=== PATIENT | male | born 1980 | race African-American/Black ===

== ENCOUNTER 2017-04-02 14:31 | Emergency (ER) | payer SELFPAY ==
[2017-04-02 14:33] VITALS: BP 154/80; PULSE 98; RESP 15; TEMP 98.4; O2SAT 99
[2017-04-02] MEDS ORDERED: REGL10TA5 PO (15:11)
--- NOTE | 2017-04-02 15:12 | PD ---
HPI Chief Complaint: GI Complaint Time Seen by Provider: 14:40 Travel History International Travel<30 days: No Contact w/Intl Traveler<30days: No Traveled to known affect area: No History of Present Illness HPI This is a 36-year-old man who presents to the emergency Department with hiccups. He said trouble with hiccups in the port. Is been ongoing for 3 or 4 days. He is been treated medications for this in the past. Little bit of nausea. No other complaints. History Past Medical History Medical History: Denies Significant Hx Social History Alcohol Use: No Tobacco Use: No Allergies-Medications (Allergen,Severity, Reaction): Coded Allergies: No Known Allergies (Unverified , 06/30/16) Review of Systems Except as stated in HPI: all other systems reviewed are Neg Physical Exam Narrative GENERAL: Well-appearing 36-year-old man, no acute distress. SKIN: Focused skin assessment warm/dry. HEAD: Atraumatic. Normocephalic. EYES: Pupils equal and round. No scleral icterus. No injection or drainage. ENT: No nasal bleeding or discharge. Mucous membranes pink and moist. NECK: Trachea midline. No JVD. CARDIOVASCULAR: Regular rate and rhythm. No murmur appreciated. RESPIRATORY: No accessory muscle use. Clear to auscultation. Breath sounds equal bilaterally. GASTROINTESTINAL: Abdomen soft, non-tender, nondistended. Hepatic and splenic margins not palpable. MUSCULOSKELETAL: No obvious deformities. Data Data Last Documented VS Vital Signs Date Time Temp Pulse Resp B/P (MAP) Pulse Ox O2 Delivery O2 Flow Rate FiO2 04/02/17 14:33 98.4 98 15 154/80 (104) 99 Orders Orders Chlorpromazine Inj (Thorazine Inj) (04/02/17 15:15) [facility] Medical Decision Making Medical Screen Exam Complete: Yes Emergency Medical Condition: Yes Differential Diagnosis Hiccups Narrative Course 36-year-old man, history of hiccups, here 3 days with a gas. We'll give a dose of Thorazine. By mouth Reglan as needed. Diagnosis Primary Impression: Hiccups Additional Instructions: Take Reglan as needed for hiccups and nausea. Follow-up with your primary doctor. Med/Other Pt SpecificInfo: Prescription(s) given Scripts Metoclopramide (Reglan) 10 Mg Tab 10 MG PO QID Y for HICCOUGHS, #12 TAB 0 Refills Prov: Ravinder Hutchinson MD 04/02/17 Disposition: 01 DISCHARGE HOME Condition: Stable Ravinder Hutchinson MD Apr 02, 2017 15:12
[2017-04-02] MEDS ORDERED: ACETAMINOPHEN 325 MG TAB PO ONE (15:30)
== END 2017-04-02 15:43 | disposition home or self-care (01) ==
LOC: NEPD 14:31
DX: R06.6 Hiccough (principal)
CPT/HCPCS: 96372; 99284; J3230

== ENCOUNTER 2017-04-04 08:20 | Emergency (ER) | payer SELFPAY ==
[~2017-04-04] VITALS: Ht 182.9 cm; Wt 70.0 kg
[~2017-04-04 08:20] MED LIST: REGL10TA5 PO
[2017-04-04 08:23] VITALS: BP 118/77; PULSE 74; RESP 15; TEMP 98.2; O2SAT 98
[2017-04-04 08:39] VITALS: BP 116/75; PULSE 70; RESP 18; O2SAT 99
[2017-04-04] MEDS ORDERED: SODIUM CHLOR 0.9% 1000 ML INJ 1,000 ML IV SCH (08:43)
[2017-04-04] MEDS ORDERED: FAMOTIDINE 20 MG/2 ML VIAL IV PUSH ONE (08:45)
[2017-04-04] MEDS ORDERED: METOCLOPRAMIDE HCL 10 MG/2 ML VIAL IV PUSH ONE (08:45)
[2017-04-04] MEDS ORDERED: SODIUM CHLORIDE 0.9% FLUSH 10 ML FLUSH IV FLUSH PRN (08:45)
--- NOTE | 2017-04-04 08:48 | PD ---
HPI Chief Complaint: GI Complaint Time Seen by Provider: 08:43 Travel History International Travel<30 days: No Contact w/Intl Traveler<30days: No Traveled to known affect area: No History of Present Illness HPI 36-year-old male patient with history of episodic hiccups, presents to the ER today because he has had a one-week history of hiccups. He states that he has had episodes of this in the past over the years. He states that it is causing some epigastric abdominal discomfort. He denies any nausea, vomiting, chest pains, shortness of breath, fevers, or other symptoms. Modifying Factors: None Associated Signs & Symptoms: One week of hiccups Risk Factors: Previous history PFSH Past Medical History Bipolar Disorder: Yes Diabetes: No Diminished Hearing: No Psychiatric: Yes Schizophrenia: Yes Tetanus Vaccination: > 5 Years Influenza Vaccination: No Social History Alcohol Use: No Tobacco Use: Yes Substance Use: No Allergies-Medications (Allergen,Severity, Reaction): Coded Allergies: No Known Allergies (Unverified , 04/04/17) Reported Meds & Prescriptions Reported Meds & Active Scripts Active No Active Prescriptions or Reported Medications Review of Systems Except as stated in HPI: all other systems reviewed are Neg Physical Exam Narrative GENERAL: Well-developed young -[place] Citizen male patient currently in mild distress. Awake and oriented 3. Intermittently hiccuping in the ER. SKIN: Focused skin assessment warm/dry. HEAD: Atraumatic. Normocephalic. EYES: Pupils equal and round. No scleral icterus. No injection or drainage. ENT: No nasal bleeding or discharge. Mucous membranes pink and moist. NECK: Trachea midline. No JVD. CARDIOVASCULAR: Regular rate and rhythm. No murmur appreciated. RESPIRATORY: No accessory muscle use. Clear to auscultation. Breath sounds equal bilaterally. GASTROINTESTINAL: Abdomen soft, mild epigastric tenderness without guarding or rebound, nondistended. Hepatic and splenic margins not palpable. Benign. MUSCULOSKELETAL: No obvious deformities. No clubbing. No cyanosis. No edema. NEUROLOGICAL: Awake and alert. No obvious cranial nerve deficits. Motor grossly within normal limits. Normal speech. PSYCHIATRIC: Appropriate mood and affect; insight and judgment normal. Data Data Last Documented VS Vital Signs Date Time Temp Pulse Resp B/P (MAP) Pulse Ox O2 Delivery O2 Flow Rate FiO2 04/04/17 09:13 18 99 Room Air 04/04/17 08:39 70 04/04/17 08:23 98.2 Orders Orders Complete Blood Count With Diff (04/04/17 08:43) Comprehensive Metabolic Panel (04/04/17 08:43) Lipase (04/04/17 08:43) Iv Access Insert/Monitor (04/04/17 08:43) Ecg Monitoring (04/04/17 08:43) Oximetry (04/04/17 08:43) Sodium Chlor 0.9% 1000 Ml Inj (Ns 1000 M (04/04/17 08:43) Sodium Chloride 0.9% Flush (Ns Flush) (04/04/17 08:45) Chest, Single Ap (04/04/17 08:43) Famotidine Inj (Pepcid Inj) (04/04/17 08:45) Metoclopramide Inj (Reglan Inj) (04/04/17 08:45) Chlorpromazine Inj (Thorazine Inj) (04/04/17 10:15) Labs Laboratory Tests Test 04/04/17 08:45 White Blood Count 7.3 TH/MM3 Red Blood Count 4.99 MIL/MM3 Hemoglobin 13.9 GM/DL Hematocrit 41.5 % Mean Corpuscular Volume 83.1 FL Mean Corpuscular Hemoglobin 27.8 PG Mean Corpuscular Hemoglobin Concent 33.4 % Red Cell Distribution Width 13.2 % Platelet Count 173 TH/MM3 Mean Platelet Volume 9.1 FL Neutrophils (%) (Auto) 61.2 % Lymphocytes (%) (Auto) 23.9 % Monocytes (%) (Auto) 8.5 % Eosinophils (%) (Auto) 5.9 % Basophils (%) (Auto) 0.5 % Neutrophils # (Auto) 4.4 TH/MM3 Lymphocytes # (Auto) 1.7 TH/MM3 Monocytes # (Auto) 0.6 TH/MM3 Eosinophils # (Auto) 0.4 TH/MM3 Basophils # (Auto) 0.0 TH/MM3 CBC Comment DIFF FINAL Differential Comment Blood Urea Nitrogen 13 MG/DL Creatinine 1.21 MG/DL Random Glucose 88 MG/DL Total Protein 7.4 GM/DL Albumin 4.2 GM/DL Calcium Level 8.6 MG/DL Alkaline Phosphatase 75 U/L Aspartate Amino Transf (AST/SGOT) 20 U/L Alanine Aminotransferase (ALT/SGPT) 23 U/L Total Bilirubin 0.5 MG/DL Sodium Level 139 MEQ/L Potassium Level 3.7 MEQ/L Chloride Level 108 MEQ/L Carbon Dioxide Level 26.1 MEQ/L Anion Gap 5 MEQ/L Estimat Glomerular Filtration Rate 82 ML/MIN Lipase 86 U/L MDM Medical Decision Making Medical Screen Exam Complete: Yes Emergency Medical Condition: Yes Medical Record Reviewed: Yes Interpretation(s) Laboratory Tests Test 04/04/17 08:45 Monocytes (%) (Auto) 8.5 % (0.0-8.0) Eosinophils (%) (Auto) 5.9 % (0.0-4.0) Chloride Level 108 MEQ/L (98-107) Estimat Glomerular Filtration Rate 82 ML/MIN (>89) Last 24 hours Impressions Chest X-Ray 04/04/17 0843 Signed Impressions: Service Date/Time: Tuesday, April 04, 2017 08:49 - CONCLUSION: No acute cardiopulmonary process. Maco Colbert MD Differential Diagnosis Hiccups: Gastritis versus pancreatitis versus pneumonia versus idiopathic versus GERD Narrative Course Chest x-ray did not show any signs of acute pulmonary processes or obvious causes of diaphragmatic irritation. Lab work did not indicate significant metabolic issues. Vital signs are stable in the ER. Patient was initially given Reglan and Pepcid in the ER. On reevaluation at 10 AM, he states there has been a slowing down a hiccup although did not go away. He states to me now that he actually was seen 3 days ago here in the ER and was given an injection that made it go away. A review of patient's chart shows that he had been given Thorazine. A dose of Thorazine was given IM although and smaller dose since he was already given Reglan. He also states that he had been on Reglan by prescription as well but it did not completely control his hiccups. At this point, my plan would be to release the patient with reflux medications as this could be a possible cause and give him an additional control medication. However, this appears to be a more chronic issue and should be followed up with primary care physician. I do not see other acute issues at this time. The plan was discussed with him and he states understanding. Diagnosis Primary Impression: Intractable hiccups Med/Other Pt SpecificInfo: Prescription(s) given Scripts Ranitidine (Zantac) 150 Mg Tab 150 MG PO BID for Reduce Stomach Acid, #14 TAB 0 Refills Prov: Andreas Hussein MD 04/04/17 Chlorpromazine (Chlorpromazine) 10 Mg Tab 10 MG PO Q4H Y for HICCOUGHS, #15 TAB 0 Refills Prov: Andreas Hussein MD 04/04/17 Disposition: 01 DISCHARGE HOME Condition: Stable Andreas Hussein MD Apr 04, 2017 08:48
[2017-04-04 09:11] LABS: AUTOMATED NEUTROPHIL # 4.4 TH/MM3 (1.8-7.7); BASOPHIL % 0.5 % (0.0-2.0); EOSINOPHIL # 0.4 TH/MM3 (0-0.4); EOSINOPHIL % 5.9 % (0.0-4.0); HEMATOCRIT 41.5 % (39.0-51.0); HEMO FLAGS DIFF FINAL; LYMPH % 23.9 % (9.0-44.0); LYMPHOCYTE # 1.7 TH/MM3 (1.0-4.8); MEAN CELL VOLUME 83.1 FL (80.0-100.0); MEAN CORPUSCULAR HEMOGLOBIN 27.8 PG (27.0-34.0); MEAN CORPUSCULAR HGB CONC 33.4 % (32.0-36.0); MONO % 8.5 % (0.0-8.0); NEUT % 61.2 % (16.0-70.0); PLATELET COUNT 173 TH/MM3 (150-450); RED BLOOD COUNT 4.99 MIL/MM3 (4.50-5.90); RED CELL DISTRIBUTION WIDTH 13.2 % (11.6-17.2); WHITE BLOOD COUNT 7.3 TH/MM3 (4.0-11.0)
[2017-04-04 09:13] VITALS: RESP 18; O2SAT 99
--- NOTE | 2017-04-04 09:26 | RADRPT ---
EXAM DATE/TIME: 04/04/2017 08:49 [facility] COMPARISON: No previous studies available for comparison. INDICATIONS : Hiccups x1 week. MEDICAL HISTORY : Hiccups SURGICAL HISTORY : None. ENCOUNTER: Initial ACUITY: 1 week PAIN SCORE: 6/10 LOCATION: Bilateral chest FINDINGS: A single view of the chest demonstrates the lungs to be symmetrically aerated without evidence of mas s, infiltrate or effusion. The cardiomediastinal contours are unremarkable. Osseous structures are intact. CONCLUSION: No acute cardiopulmonary process. Maco Colbert MD on April 04, 2017 at 9:23 Board Certified Radiologist. This report was verified electronically.
[2017-04-04 09:41] LABS: ANION GAP 5 MEQ/L (5-15); AST (GOT) 20 U/L (15-37); BICARBONATE 26.1 MEQ/L (21.0-32.0); BLOOD UREA NITROGEN 13 MG/DL (7-18); CHLORIDE 108 MEQ/L (98-107); GLOMERULAR FILTRATION RATE 82 ML/MIN (>89); POTASSIUM 3.7 MEQ/L (3.5-5.1); SODIUM (NA) 139 MEQ/L (136-145)
[2017-04-04 09:45] LABS: ALKALINE PHOSPHATASE 75 U/L (45-117); ALT (GPT) 23 U/L (12-78); TOTAL BILIRUBIN ADULT 0.5 MG/DL (0.2-1.0)
[2017-04-04] MEDS ORDERED: CHLO10TA9 PO (10:14)
[2017-04-04] MEDS ORDERED: ZANT150T2 PO (10:14)
== END 2017-04-04 11:30 | disposition home or self-care (01) ==
LOC: NEPE 08:20
DX: R06.6 Hiccough (principal)
CPT/HCPCS: 71010; 80053; 83690; 85025; 96361; 96372; 96374; 96375; 99284; J2765; J3230; J7030